=== PATIENT | male | born 1985 | race Caucasian/White ===

== ENCOUNTER 2018-07-29 02:50 | Inpatient (IN) ==
[2018-07-29] MEDS ORDERED: CARDIZEM IV ONE ×2 (03:07→04:06)
[2018-07-29 03:30] LABS: BASO# 0.09 X1000 (0.0-0.2); BASO% 1.2 % (0.0-0.8); EOS# 0.15 X1000 (0.0-0.7); HEMATOCRIT 43.5 % (42.0-52.0); HEMOGLOBIN 15.4 g/dL (14.0-18.0); IMM GRAN# 0.02 X1000 (0.0-0.04); IMM GRAN% 0.3 % (0.0-0.5); LYMPH# 2.43 X1000 (1.2-3.4); LYMPH% 32.8 % (20.5-51.1); MCH 28.5 PG (27-31); MCHC 35.4 g/dL (33-37); MCV 80.6 FL (81-99); MONO# 0.89 X1000 (0.11-0.59); MPV 9.9 FL (7.4-10.4); NEUT# 3.82 X1000 (1.4-6.5); NEUT% 51.7 % (42.2-75.2); PLT 292 X1000 (130-400); RDW 13.7 % (11.5-14.5)
--- NOTE | 2018-07-29 03:35 | PROVIDER DOCUMENTATION ---
HPI-Cardiac General - General Chief Complaint: Palpitations Stated Complaint: A FIB Time Seen by Provider: 07/29/18 03:06 Source: patient, family Allergies/Adverse Reactions: Patient Allergies Allergy/AdvReac Type Severity Reaction Status Date / Time Penicillins Allergy HIVES Verified 07/29/18 03:21 pertussis vaccine,adsorbed Allergy Unknown Verified 07/29/18 03:21 [Pertussis Vaccine,Adsorbed] Home Medications: Home Medication List Medication Instructions Recorded Confirmed Last Taken Type Aspirin 325 mg PO DAILY #30 tablet 12/07/13 Unknown Rx Metoprolol [Lopressor] 25 mg PO Q12HR #60 tablet 12/07/13 Unknown Rx Propafenone [Rythmol] 150 mg PO Q8H #30 tablet 12/07/13 Unknown Rx - History of Present Illness-Cardiac Nature of Presenting Problem: PATIENT COMES IN WITH C/O "HEART RACING" FOR ABOUT 30 MIN. PATIENT HAS HX OF AFIB. DENIES PAIN, SOB, OR N/V. patient had history of a-fibrillation Location: reports: central Quality of Pain: reports: other (no pain, palpitation) Onset/Duration: abrupt, other (today) Timing: still present Context/Activities at Onset: reports: none Modifying Factors: improves with: nothing History of arrythmia: reports: A-Fib Similar Symptoms Previously?: Yes Recently Seen Here or By Another Healthcare Provider: No Review of Systems - Adult - REVIEW OF SYSTEMS - ADULT Constitutional: reports: no symptoms reported. denies: fever, fatique Ears, Nose, Mouth & Throat: reports: no symptoms reported Cardiovascular: reports: palpitations Respiratory: reports: no symptoms reported. denies: cough, dyspnea on exertion, shortness of breath Gastrointestinal: reports: no symptoms reported Genitourinary: reports: no symptoms reported Musculoskeletal: reports: no symptoms reported Integumentary: reports: no symptoms reported Neurological: reports: no symptoms reported Psychiatric: reports: no symptoms reported Endocrine: reports: no symptoms reported Hematologic/Lymphatic: reports: no symptoms reported Allergic/Immunologic: reports: no symptoms reported Past History - Adult - PAST MEDICAL HISTORY-ADULT Review of Records: reports: Nursing Assessment Review Cardiovascular: reports: A-Fib Neurological: reports: other (neurofibromatosis) Physical Exam-General - PHYSICAL EXAM-ADULT Initial Vital Signs Reviewed: Yes - CONSTITUTIONAL General Appearance: alert, other (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) - HEAD, EARS, NOSE, MOUTH & THROAT HENMT: moist mucous membranes - NECK Neck: non-tender, supple - RESPIRATORY Respiratory: chest non-tender, lungs clear - CARDIOVASCULAR Cardiovascular: tachycardia, irregularly irregular - GASTROINTESTINAL (ABDOMEN) Abdominal Exam: normal bowel sounds, non tender, soft, no organomegaly, no pulsatile mass - LYMPHATIC Lymphatic: no adenopathy - MUSCULOSKELETAL Back Exam: normal inspection, no CVA tenderness, no vertebral tenderness Extremity: normal range of motion, non-tender - SKIN Integumentary: other (NF1 on face) - NEUROLOGIC Neurologic: stone polisher II-XII nml as tested, grossly normal, no motor/sensory deficits - PSYCHIATRIC Psych/Mental Status: normal mood/affect - HEART Score HEART Score: History: Slightly Suspicious HEART Score: ECG: Non-Specific Repolarization Disturbance/LBBB/PM HEART Score: Age: < or = 45 Years HEART Score: Risk Factors for Atherosclerotic Disease: No Risk Factors Known HEART Score: Troponin: < or = Normal Limit Total HEART Score:: 1 Progress - PLAN OF CARE/RESULTS Progress/Plan/Lab Results: Vital Signs - 8 hr 07/29/18 02:56 Temperature 97.4 F L Pulse Rate 178 H Respiratory Rate 20 Blood Pressure 138/75 O2 Sat by Pulse Oximetry 97 Laboratory Results - last 24 hr 07/29/18 07/29/18 07/29/18 03:05 03:05 03:05 WBC 7.40 RBC 5.40 Hgb 15.4 Hct 43.5 MCV 80.6 L MCH 28.5 MCHC 35.4 RDW Std Deviation 13.7 Plt Count 292 MPV 9.9 Immature Gran % (Auto) 0.3 Neut % (Auto) 51.7 Lymph % (Auto) 32.8 Drew % (Auto) 12.0 H Eos % (Auto) 2.0 Baso % (Auto) 1.2 H Immature Gran # (Auto) 0.02 Neut # (Auto) 3.82 Lymph # (Auto) 2.43 Drew # (Auto) 0.89 H Eos # (Auto) 0.15 Baso # (Auto) 0.09 Sodium 140 Potassium 3.8 Chloride 102 Carbon Dioxide 27 Anion Gap 11 BUN 10 Creatinine 0.9 Estimated GFR/1.73 m2 > 60 BUN/Creatinine Ratio 11 Glucose 104 Calculated Osmolality 279 Calcium 9.1 Total Bilirubin 0.48 AST 14 ALT 26 Alkaline Phosphatase 25 L Creatine Kinase 46 Troponin T < 0.010 Total Protein 7.4 Albumin 4.3 Globulin 3.1 Albumin/Globulin Ratio 1.4 TSH 07/29/18 03:05 WBC RBC Hgb Hct MCV MCH MCHC RDW Std Deviation Plt Count MPV Immature Gran % (Auto) Neut % (Auto) Lymph % (Auto) Drew % (Auto) Eos % (Auto) Baso % (Auto) Immature Gran # (Auto) Neut # (Auto) Lymph # (Auto) Drew # (Auto) Eos # (Auto) Baso # (Auto) Sodium Potassium Chloride Carbon Dioxide Anion Gap BUN Creatinine Estimated GFR/1.73 m2 BUN/Creatinine Ratio Glucose Calculated Osmolality Calcium Total Bilirubin AST ALT Alkaline Phosphatase Creatine Kinase Troponin T Total Protein Albumin Globulin Albumin/Globulin Ratio TSH 2.75 Orders Category Date Time Status CBC WITH DIFF [HEME] Stat Lab 07/29/18 03:05 Completed CK PROFILE [SP CHEM] Stat Lab 07/29/18 03:05 Completed COMPREHENSIVE METABOLIC PANEL [CHEM] Stat Lab 07/29/18 03:05 Completed TROPONIN T Stat Lab 07/29/18 03:05 Completed TSH Stat Lab 07/29/18 03:05 Completed URINE DRUG SCREEN Stat Lab 07/29/18 04:56 Uncollected Diltiazem 100 mg/Ns [Cardizem 100 mg/Ns] Med 07/29/18 06:15 Ordered 100 mg in 100 ml IV DIRECTED Diltiazem [Cardizem] Med 07/29/18 04:06 Discontinued 10 mg IV NOW ONE Diltiazem [Cardizem] Med 07/29/18 03:07 Discontinued 20 mg IV NOW ONE Metoprolol [Lopressor] Med 07/29/18 04:41 Discontinued 5 mg IV NOW ONE Result Diagrams: 07/29/18 03:05 07/29/18 03:05 - EKG 1 Time of EKG reading by physician:: 02:55 EKG Interpretation (*Must complete 3 of following elements*): Abnormal Rate: 163 Rhythm: atrial fibrillation MD Interval: normal ST Wave: normal - CONSULTS/PCP/HOSPITALIST Notification #1 *Consult/PCP/Hospitalist*: Dr Orr Time Discussed: 05:45 Consult Disposition: Admit Departure - Departure Date of Disposition Decision: 07/29/18 Time of Disposition Decision: 06:10 DIAGNOSIS: Atrial fibrillation with RVR Disposition: ADMITTED INPATIENT 09 Certified Medical Emergency: Emergent Condition: Stable Referrals and Follow-Ups: Rik Osuna MD [Primary Care Provider] - - Critical Care Note This patient required my direct & personal management of CC.: Yes Total Time (mins): 31 Critical Care Statement: This patient required my direct personal management to treat or rule out processes, the absence of which, could potentiallly result in sudden, clinically significant life or limb threatening deterioration. Attestation - Physician/ NICOLETTE Attestation Patient care was provided by Advanced Practice Provider:: No The physician spent face to face time with patient:: Yes Advanced Practice Provider documentation review:: Supervising physician onsite and consulted in the evaluation and care of this patient. The physician did have a face to face encounter with the patient.
[2018-07-29 03:39] LABS: AGAP 11; ALB/GLOB RATIO 1.4; ALBUMIN 4.3 g/dL (3.5-5.0); ALKALINE PHOSPHATASE 25 U/L (32-122); BUN 10 mg/dL (8-22); CALCIUM 9.1 mg/dL (8.8-10.2); CHLORIDE 102 mmol/L (98-107); CK PROFILE 46 U/L (24-204); COSMO 279; CREATININE 0.9 mg/dL (0.7-1.2); ESTIMATED GFR > 60; GLUCOSE 104 mg/dL (70-104); GOT 14 U/L (10-34); GPT 26 U/L (10-44); POTASSIUM 3.8 mmol/L (3.5-5.1); SODIUM 140 mmol/L (136-145); TCO2 27 mmol/L (25-35); TOTAL BILIRUBIN 0.48 mg/dL (0.20-1.00); TOTAL PROTEIN 7.4 g/dL (6.3-8.3)
[2018-07-29] MEDS ORDERED: LOPRESSOR IV ONE (04:41)
[2018-07-29] MEDS ORDERED: CARDIZEM 125/NS 125 MG/125 ML IVPB IV SCH (06:15)
--- NOTE | 2018-07-29 07:31 | HISTORY AND PHYSICAL ---
CHIEF COMPLAINT: Palpitations, first one at about 2:30 a.m. on 07/29/2018. HISTORY OF PRESENT ILLNESS: Mr. Jani Son is a 32-year-old male who has history of atrial fibrillation as well as neural fibromatosis. Noticed palpitation about 2:30 a.m. this morning. Denies any chest pain or shortness of breath. Presented to the ER, he was found to be in atrial fibrillation with rapid ventricular rate. The patient has now been started on a Cardizem infusion and he will be admitted to the cardiac care unit for further management. PAST MEDICAL HISTORY: 1. Atrial fibrillation. 2. Cough. 3. 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 MEDICATIONS: 1. He takes aspirin 325 mg p.o. daily. 2. Metoprolol 25 mg p.o. twice a day. 3. Propafenone 150 mg every 8 hours. SOCIAL HISTORY: No history of cigarette smoking, alcohol, or drug use. ALLERGIES: He is allergic to penicillin as well as [*] PAST SURGICAL HISTORY: The patient has had several facial surgeries for his neurofibromatosis and that has left him with significant left facial deformity. FAMILY HISTORY: Positive for atrial fibrillation. REVIEW OF SYSTEMS: [employer] SU[employer] WORKER: Fever. ENT: Sinus congestion. Eyes: Visual blurring. Cardiovascular: No chest pain. Respiratory: No cough. Gastrointestinal: No nausea, vomiting, diarrhea. Genitourinary: No dysuria. Musculoskeletal: No joint pains. Psychiatric: No anxiety or depression. Hematology: No bleeding problems. Endocrinology: No thyroid disease or diabetes. PHYSICAL EXAMINATION: VITAL SIGNS: Are as follows, temperature 97.4 degrees, pulse 178, respiratory rate 20, blood pressure 138/75, oxygen saturation is 97%. HEENT: The patient does have significant deformity of his face involving mainly the left side. He is anicteric. No oral lesions noted. NECK: No lymphadenopathy or thyromegaly. CARDIOVASCULAR: S1, S2. Irregular, tachycardic. RESPIRATORY: Has evidence of good entry bilaterally. ABDOMEN: Soft, nontender. No masses felt. EXTREMITIES: No evidence of edema. CENTRAL NERVOUS SYSTEM: No obvious focal deficits noted. LABS: WBC 7.4, hematocrit 43.5, with a platelet count of 292,000. Sodium 140, potassium 3.8, chloride is 102, bicarb 27, BUN 10, creatinine 0.9. ASSESSMENT AND PLAN: A 32-year-old male with a history of atrial fibrillation and also neurofibromatosis with left facial deformity. Presented to the hospital because of palpitations, noted to be in atrial fibrillation with rapid ventricular rate. PLAN: Admit the patient to the cardiac unit. Place him on telemetry. Obtain serial cardiac enzymes. Check thyroid function test. Obtain 2D echo of the heart. Continue intravenous Cardizem for rate control. Consult with the patient's processing operator. The patient will maintain on both DVT as well as GI prophylaxis. cc: Ayo Orr MD
--- NOTE | 2018-07-29 08:50 | EKG Report ---
Test Performed on : 07/29/2018 02:55:24 AM Test Reason : AFIB Blood Pressure : / mmHG Vent. Rate : 163 BPM Atrial Rate : 138 BPM P-R Int : 000 ms QRS Dur : 092 ms QT Int : 290 ms P-R-T Axes : 000 066 065 degrees QTc Int : 477 ms Atrial fibrillation. with rapid ventricular response. Abnormal ECG When compared with ECG of 07-DEC-2013 05:53, Atrial fibrillation. has replaced Sinus rhythm. Vent. rate has increased BY [address] no longer elevated in Inferior leads ST no longer elevated in Anterolateral leads Unconfirmed Result
[2018-07-29 09:08] LABS: UR AMPHETAMINES QUAL NONE DETECTED (NONE DETECT); UR BARBITUATES QUAL NONE DETECTED (NONE DETECT); UR BENZODIAZEPIN QUAL NONE DETECTED (NONE DETECT); UR CANNABINOIDS QUAL NONE DETECTED (NONE DETECT); UR COCAINE QUAL NONE DETECTED (NONE DETECT); UR METHADONE QUAL NONE DETECTED (NONE DETECT); UR OPIATES QUAL NONE DETECTED (NONE DETECT); UR OXYCODONE QUAL NONE DETECTED (NONE DETECT); UR PCP QUAL NONE DETECTED (NONE DETECT)
[2018-07-29] MEDS: LOVENOX SUBQ SCH (13:00)
[2018-07-29] MEDS ORDERED: RYTHMOL PO SCH (13:00)
--- NOTE | 2018-07-29 13:16 | CONSULTATION ---
DATE OF CONSULTATION: 07/29/2018 IMPRESSIONS: 1. Recurrent atrial fibrillation. 2. Paroxysmal atrial fibrillation, previously suppressed with propafenone 150 mg by mouth three times a day. 3. Neurofibromatosis. RECOMMENDATIONS: 1. Lovenox 1 mg/kg subcutaneous q.12 pending conversion back to sinus rhythm. 2. Agree with use of intravenous Cardizem for rate control. 3. Increase propafenone to 225 mg p.o. t.i.d. 4. Once patient converts back to sinus rhythm, it would be reasonable for him to be discharged and follow up with his regular yard operator, Dr. Tran. HISTORY: This 32-year-old, white male with a past history of paroxysmal atrial fibrillation and neurofibromatosis presented to the emergency room early this morning with recurrent tachy palpitations. He was found to be in atrial fibrillation with a rapid ventricular rate. He was started on intravenous Cardizem, which has brought his rate under better control. Cardiology is consulted. He relates onset of tachy palpitations around 2:30 a.m. today. He has had no associated symptoms. There has been no chest pain, shortness of breath, or lightheadedness. He has been compliant with propafenone. He does not use alcohol. PAST MEDICAL HISTORY: 1. Paroxysmal atrial fibrillation. 2. Neurofibromatosis. ALLERGIES: He is allergic or intolerant to penicillin. MEDICATIONS PRIOR TO ADMISSION: Include aspirin, metoprolol, propafenone. SOCIAL HISTORY: He does not smoke or use alcohol. FAMILY HISTORY: Positive for atrial fibrillation but negative for premature coronary artery disease. REVIEW OF SYSTEMS: Pulmonary: Negative. Gastrointestinal: Negative. Constitutional: Negative. Remainder of review of systems negative/noncontributory with 14 total systems reviewed. PHYSICAL EXAMINATION: General: This is an adult, white male in no distress. Left side of his face is disfigured severely due to neurofibromatosis. Vital Signs: Blood pressure 100/70, heart rate 102 and irregular, with ECG monitor showing atrial fibrillation, oxygen saturation 96%. HEENT Examination: Extraocular movements appear to be intact. Mucous membranes are moist. Neck: Supple. No jugular venous distention. No carotid bruits. Chest: Clear to auscultation. Cardiac Examination: Reveals an irregular rate and rhythm without appreciable murmur or gallop. Abdomen: Soft. Bowel sounds are normal. Extremities: Without edema. Neurologic: Examination reveals him to be alert and fully oriented. Speech is fluent. He moves all 4 extremities equally well. Skin: Warm and dry. Psychiatric: Examination reveals mood to be appropriate. PERTINENT DATA: Twelve lead EKG demonstrates atrial fibrillation with rapid ventricular rate. LABORATORY DATA: Includes a white blood cell count of 7.4, hematocrit 43.5, hemoglobin 15.4, platelet count 292,000. Sodium 140, potassium 3.8, chloride 102, carbon dioxide 27, BUN 10, creatinine 0.9, glucose 104. Troponin T less than 0.01. TSH 2.75, free T4 of 1.21. cc: MD Ayo Snider MD
--- NOTE | 2018-07-29 14:56 | ECHO REPORT ---
ORDER DATE: 07/29/2018 INDICATION: Atrial fibrillation. FINDINGS: 1. The right atrium appears normal in size. 2. Mild tricuspid regurgitation. RV systolic pressure of 32. 3. Normal RV size and systolic function. 4. Mild pulmonic insufficiency. 5. Normal left atrial size with a dimension of 3.2 cm. 6. No mitral valve prolapse. Mild mitral regurgitation. 7. Normal LV size. The end-diastolic dimension is 3.6 cm. Normal wall thicknesses with a posterior and interventricular septal wall thickness of 1.0 and 1.1 cm respectively. Likely normal LV systolic function with an estimated EF in the 55% range. This is a difficult study due to the irregularity from the atrial fibrillation. No obvious segmental abnormalities. 8. Aortic valve opens well. It is trileaflet. No evidence of stenosis or insufficiency. 9. Aorta appears normal in visualized segments. 10. No pericardial effusion seen. cc: MD Ayo Dinh MD
[2018-07-29] MEDS: RYTHMOL PO SCH (20:54)
[2018-07-29] MEDS ORDERED: ASPIRIN PO SCH (21:00)
[2018-07-30] MEDS: LOVENOX SUBQ SCH (00:19)
[2018-07-30] MEDS: RYTHMOL PO SCH ×2 (05:15→12:14)
[2018-07-30] MEDS: PROTONIX PO SCH ×2 (05:15→06:00)
--- NOTE | 2018-07-30 07:44 | EKG Report ---
Test Performed on : 07/30/2018 07:11:00 AM Test Reason : afib Blood Pressure : / mmHG Vent. Rate : 084 BPM Atrial Rate : 084 BPM P-R Int : 152 ms QRS Dur : 110 ms QT Int : 388 ms P-R-T Axes : 053 075 055 degrees QTc Int : 458 ms Normal sinus rhythm. Normal ECG When compared with ECG of 29-JUL-2018 23:42, (Unconfirmed) No significant change was found Confirmed by Shreya MULLINS, Dennis ([id number]) on 07/30/2018 8:40:15 AM
--- NOTE | 2018-07-30 08:47 | EKG Report ---
Test Performed on : 07/29/2018 11:42:35 PM Test Reason : ED. NO EKG ORDER FOR MUSE Blood Pressure : / mmHG Vent. Rate : 081 BPM Atrial Rate : 081 BPM P-R Int : 166 ms QRS Dur : 116 ms QT Int : 396 ms P-R-T Axes : 044 063 049 degrees QTc Int : 460 ms Normal sinus rhythm. Possible Left atrial enlargement Borderline ECG When compared with ECG of 29-JUL-2018 02:55, (Unconfirmed) Sinus rhythm. has replaced Atrial fibrillation. Vent. rate has decreased BY 82 BPM QRS duration has increased Non-specific change in ST segment in Inferior leads Non-specific change in ST segment in Anterolateral leads Unconfirmed Result
--- NOTE | 2018-07-30 10:47 | PROGRESS NOTE ---
DATE: 07/30/2018 INTERVAL HISTORY: Yesterday starting at about noontime, his heart rate had become uncontrolled. He did not have any chest pain, shortness of breath. No other acute overnight events. SUBJECTIVE: He is feeling fine. Denies any palpitation. We discussed about medication changes. The patient's mother is at bedside; all of their questions have been answered. OBJECTIVE: Vital Signs: Temperature 97.9 degrees, pulse 84, respiratory rate 15, blood pressure 104/58, saturating 99% on room air. HEENT: He does have left-sided facial deformity because of facial surgeries for neurofibromatosis. He does not have vision of the left eye. Right pupil is equal, reacting to light Lungs: Air entry bilaterally equal. No wheeze, rhonchi or crackles. Heart: S1, S2 normal. No murmur, rub, or gallop. Abdomen: Soft, nontender. Lower Extremities: No edema. LABS: No CBC or BMP today. His troponins have been negative. IMAGING: His echocardiogram was performed yesterday and had ejection fraction of 55% with normal left atrial size and dimension without any mitral valve prolapse. However, it was a difficult study because of atrial fibrillation. ASSESSMENT AND PLAN: Paroxysmal atrial fibrillation with rapid ventricular rate, which he has converted after intravenous diltiazem. Continue higher dose of propafenone and aspirin. Will appreciate Cardiology recommendation if he would need a longer-acting diltiazem at the time of discharge. Currently, he is in normal sinus rhythm, and I will hold the diltiazem drip. I will also stop the enoxaparin considering he does have very low risk of stroke as his CHADS-VASc score is zero. DISPOSITION: If he is tolerating being off the diltiazem drip without any trouble, I will consider discharging him later today. Plan of care discussed with the patient's mother. cc: MD Ayo Gan MD
[2018-07-30] MEDS ORDERED: CARDIZEM CD PO SCH (11:15)
[2018-07-30 12:34] VITALS: BP 112/64
--- NOTE | 2018-07-31 03:52 | DISCHARGE SUMMARY ---
ADMISSION DATE: 07/29/2018 DISCHARGE DATE: 07/30/2018 DISCHARGE DIAGNOSIS: Atrial fibrillation with rapid ventricular rate. OTHER DIAGNOSES: 1. History of paroxysmal atrial fibrillation. 2. History of neurofibromatosis type 1, requiring multiple facial surgeries and resulting left- sided persistent facial deformity. CONSULTATIONS DURING HOSPITALIZATION: Cardiology, Dr. Serna. DISCHARGE MEDICATIONS: Aspirin 81 mg daily, diltiazem 120 mg controlled release daily, propafenone 225 mg every 8 hours. VITAL SIGNS: At the time of discharge, temperature 97.2 degrees, pulse 82, respiratory rate 15, blood pressure 110/64, saturating 100% on room air. PHYSICAL EXAMINATION: General: Does not appear in any acute distress. HEENT: Oral cavity is moist. 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 Respiratory: Air entry equal. No wheeze, rhonchi. Cardiovascular: S1, S2 normal. No murmur, rub, or gallop. He has a normal sinus rhythm on monitor. Abdomen: Soft, nontender. Extremities: No lower extremity edema. SIGNIFICANT LABS: During hospital admission, his WBC, hemoglobin, and platelet counts were normal. His BUN was 10, creatinine of 0.9. His troponin's were negative x3. His urine toxicology was unremarkable. SIGNIFICANT IMAGING: During hospitalization, electrocardiogram on admission had suggested atrial fibrillation with rapid ventricular rate, with heart rate of 160. EKG on 07/30/2018 had suggested normal sinus rhythm and normal ECG. Echocardiogram had suggested ejection fraction of 55%, though it was difficult study because of atrial fibrillation, but he did not have significant valvular abnormality or left atrial enlargement. HOSPITAL COURSE SUMMARY: Mr. Son is a 32-year-old man with past medical history of paroxysmal atrial fibrillation, who came in with chief complaints of palpitation. While in the emergency room, he was detected to have atrial fibrillation with rapid ventricular rate. He was given diltiazem bolus and was started on diltiazem drip. At home, he was taking propafenone. While inside the hospital, his propafenone dose was increased, and with intravenous diltiazem, he converted to normal sinus rhythm. At the time of discharge, his diltiazem drip was stopped and he was started on p.o. diltiazem, which he tolerated without any hemodynamic disturbance. At the time of discharge, he did not have any more palpitation. He was discharged on diltiazem, increased dose of propafenone, and aspirin was added considering his multiple paroxysms. He was advised to follow up with outpatient Cardiology. Plan of care was discussed with the patient's mother at bedside. More than 30 minutes were spent in discharging this patient. All of his and his mother's questions were answered extensively. cc: MD Ayo Gan MD
== END 2018-07-30 14:20 | disposition home or self-care (01) | DRG 310 ==
LOC: ED 02:50 → SUATTDRO 02:51 → EDIPHOLD 02:51 → 3S 07-30 03:47
PROVIDERS: ADMIT Internal Medicine; ATTEND Internal Medicine
CPT/HCPCS: 80053; 80101; 80301; 80307; 80324; 80345; 80346; 80353; 80358; 80361; 80365; 82550; 83992; 84439; 84443; 84484; 85025; 93005; 93010; 93306; 96365; 96366; 96372; 96375; 96376; 99285; A9270; C8929; G0431; G0434; G0479; G0480; J1650; Q9957